=== PATIENT | male | born 1985 | race Hispanic/Latino ===

== ENCOUNTER 2016-12-03 15:56 | Emergency (ER) | payer SELFPAY ==
--- NOTE | 2016-12-03 17:13 | ERNOTE ---
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 He relates yesterday he developed fever, cough, body aches, congestion and sore throat. He denies abdominal pain. He feels like his lungs are burning and his cough has been the primay complaint. Has not seen anyone else for this. Nothing seems to make it better or worse. Timing: constant Severity: moderate Modifying Factors - (Improves): Present: other - none Modifying Factors - (Worsens): Present: other - none Review of Systems - Review of Systems Constitutional: Present: fever EYE: Present: no symptoms reported ENT: Present: nose congestion, sore throat Respiratory: Present: cough. Absent: shortness of breath Cardiology: Absent: chest pain Gastrointestinal/Abdominal: Absent: abdominal pain Musculoskeletal: Present: muscle pain Neurological: Absent: headache - Patient's Past Medical History Patient History - Medical: No pertinent hx Patient History - Cardiac/Respiratory: No pertinent hx Patient History - Cancer: No Hx of Cancer Patient History - Surgical Procedures: No surgical history Patient History - Other: None - Social History Living Situations: home Psych History: No pertinent hx - Immunizations Immunizations Up to Date: Yes Physical Exam - Physical Exam General Appearance: Present: alert, no apparent distress, other - non-toxic, no distress, speaking in full sentences. Well hydrated. Occasional cough Eye Exam: Normal inspection: bilateral, PERRL: bilateral Ears, Nose, Throat: Present: nasal congestion. Absent: abnormal TM (R), abnormal TM (L), pharyngeal swelling, tonsillar exudate, tonsillar swelling, dry mucous membranes, other - mild posterior oropharyngeal erythema. Neck: Present: normal inspection, nontender, other - no meningeal signs Respiratory: Present: no respiratory distress, normal breath sounds, no accessory muscle use, lungs clear. Absent: respiratory distress, accessory muscle use, stridor, wheezing Cardiovascular/Chest: Present: regular rate, rhythm Gastrointestinal/Abdominal: Present: normal bowel sounds, nontender, nondistended, soft. Absent: tenderness Back Exam: Present: normal range of motion. Absent: CVA tenderness (R), CVA tenderness (L) Extremity Exam: Present: normal inspection Neurological Exam: Present: alert, normal mood/affect, no motor/sensory deficits , eeler II-XII nml as tested. Absent: motor weakness Skin Exam: Absent: skin rash ED Progress - Results and Orders Patient's Lab Results:: I have reviewed the patient's lab results. - Vital Signs Patient's Vital Signs:: I have reviewed the patient's vital signs. Vital Signs: Vital Signs 12/03/16 16:14 Temperature 37.6 C Pulse Rate 94 Respiratory 16 Rate Blood Pressure 129/76 O2 Sat by Pulse 100 Oximetry - Progress/Reassessment Chief Complaint: Flu Symptoms Progress Note-Subjective: 12/03/16 17:08 No distress. Will treat cough with proair. Will cover with ABx. He is stable , non-toxic no distress. Departure - Departure Clinical Impression: Cough Condition: Stable Additional Instructions: Rest. Fluids. Tylenol/Ibuprofen for fever. Inhaler for cough. Antibiotic as directed. Return for trouble breathing or if your condition worsens or changes in any way. Prescriptions: Albuterol Sulfate [Proair Hfa] 2 puff IH Q4H PRN #1 inhaler PRN Reason: Shortness Of Breath Azithromycin [Zithromax] 500 mg PO NOW #6 tab
[2016-12-03 17:23] VITALS: BP 124/88
== END 2016-12-03 17:27 | disposition home or self-care (01) ==
LOC: ER 15:56
DX: R05 Cough (principal)